=== PATIENT | female | born 2000 | race American Indian/Alaskan Native ===

== ENCOUNTER 2021-02-21 15:56 | Emergency (ER) | payer MEDICAID ==
[2021-02-21 17:14] VITALS: BP 135/71
--- NOTE | 2021-03-01 10:59 | Electrocardiograph Report ---
[facility] Test Date: 2021-02-21 Test Time: 17:20:24 Pat Name: YULIA BOLAND Department: Room: Gender: F Computer Assistant: LAWRENCE : 2000 Requested By: MARVA DUFFY III Order Number: [id number] Reading MD: [place] Measurements Intervals [place] Rate: 93 P: -1 WY: 164 QRS: 1 QRSD: 81 T: 30 QT: 345 QTc: 430 Interpretive Statements Sinus rhythm Low voltage, precordial leads No previous ECG available for comparison Electronically Signed On 03-01-2021 10:59:34 EDT by [place]
== END 2021-02-21 20:30 | disposition left against medical advice (07) ==
LOC: ED 15:56
DX: R07.89 Other chest pain (principal); R10.30 Lower abdominal pain, unspecified
CPT/HCPCS: 93005

== ENCOUNTER 2021-03-30 05:15 | Emergency (ER) | payer MEDICAID ==
[2021-03-30 05:32] VITALS: BP 140/82
--- NOTE | 2021-03-30 05:50 | Cat Scan Report ---
CT HEAD WITHOUT CONTRAST INDICATION / CLINICAL INFORMATION: Patient hit her head on a dresser. TECHNIQUE: All CT scans at this location are performed using CT dose reduction for ALARA by means of automated exposure control. COMPARISON: None available. FINDINGS: BRAIN PARENCHYMA: No acute intracranial hemorrhage. No evidence of recent infarct. No mass effect or midline shift. VENTRICULAR SYSTEM/EXTRA-AXIAL SPACES: Ventricles are normal for age. No extra-axial fluid collection . ORBITS: Normal as visualized. SKELETAL SYSTEM/SOFT TISSUES: Mild frontal scalp contusion. Calvarium is intact. PARANASAL SINUSES/MASTOID AIR CELLS: No significant abnormality. ADDITIONAL FINDINGS: None. IMPRESSION: 1. No acute intracranial abnormality. Signer Name: Kofi Mattson MD Signed: 03/30/2021 5:46 AM Workstation Name: [id number]
== END 2021-03-30 06:00 | disposition left against medical advice (07) ==
LOC: ED 05:15
DX: R42 Dizziness and giddiness (principal); Z53.21 Procedure and treatment not carried out due to patient leaving prior to being seen by health care provider
CPT/HCPCS: 70450

== ENCOUNTER 2021-05-15 01:47 | Emergency (ER) | payer MEDICAID | END 2021-05-16 01:16 | LOC: ED 01:47 | DX: R07.0 Pain in throat (principal); Z53.21 Procedure and treatment not carried out due to patient leaving prior to being seen by health care provider ==